=== PATIENT | male | born 1955 | race Caucasian/White ===

== ENCOUNTER 2024-10-01 16:00 | Emergency (ER) | payer MEDICARE, OTHER, SELFPAY ==
[2024-10-01 16:03] VITALS: BP 126/70
--- NOTE | 2024-10-01 17:34 | ED.GENMED ---
History of Present Illness
General
Chief Complaint: Skin Surface Trauma
Source: patient
Exam Limitations: none
Time Seen by Provider: 10/01/24 16:38
Nursing documentation reviewed up to this point in time: agreed with
History of Present Illness
History of Present Illness:
69 Y/O m
R hand dominant
accidentally cut L wrist with utility knife
unnkown tetanus
no active bleeding
normal ROM and snesation in his hand
Past History
Past History
ED Past Medical History: None
ED Past Surgical History: None
Phy Exam
Physical Exam
Physical Exam:
GENERAL: Alert , in no apparent distress, comfortable at rest
HEAD: NCAT
CV: 2+ radial and ulnar pulse
cap refill intact fingers L hand
NEUROLOGICAL: Alert and oriented, no focal neuro deficits, , 5/5 strength, sensation intact; pt has reported dminished sensation to fingertips of L hand but can feel my touch
SKIN: Warm and dry,
sightly irregular shaped laceration volar wrist center horizontally oriented 4 cm
no active bleeding
MUSCULOSKELETAL: wrist laceration L side
no obvious tendon/nerve or vascular injury
full hand and finger ROM
PSYCH: Normal and appropriate interaction.
Course
Orders/Labs/Results
Orders:
Orders
10/01/24 17:02
Tetanus/Diphth/Acelpertussis [Adacel] 0.5 ml IM .ONCE ONE
Vital Signs
Initial and Last Documented VS:
Initial Vital Signs
Temp Pulse Resp BP Pulse Ox
36.8 C 53 18 126/70 98
10/01/24 16:03 10/01/24 16:03 10/01/24 16:03 10/01/24 16:03 10/01/24 16:03
Last Documented Vital Signs
Temp Pulse Resp BP Pulse Ox
36.8 C 53 18 126/70 98
10/01/24 16:03 10/01/24 16:03 10/01/24 16:03 10/01/24 16:03 10/01/24 17:34
Procedures
Laceration Closure
Left Volar Wrist:
Status of Wound: clean
Size of Wound in cm: 4
Description of Wound Edges: sharp
Preparation: cleaned with saline
Anesthesia: 1% Lidocaine
Revision/Debridement: routine- no revision
Wound exploration: explored to base- no FB and no tendon involvement
Type of Closure: single layer closure
Skin Closure Material: 5-0 nylon
Number of sutures: 6
MDM/Problems Addressed
Differential Diagnosis Includes:
laceration
MDM/Problems Addressed:
69 y/o M
right hand dominant
accidental L wrist laceration
teanus updated here
no known n/v injury
full ROM
irrigated and closed, well approximated
hand surgery f/u as needed; has some subjective fingertip tinglin but no objective senssory dficits; no obvious median nerve injury
*Pulse Oximetry
SaO2: 98
Patient hypoxic: no (98)
*Critical Care Note
Total Time (30-74mins, 75-104mins- exclusive of procedures): Not Applicable
ED Attending Note
-
Portions of this chart may have been created with voice recognition software.� Occasional wrong word or��sound alike� substitutions may have occurred due to the inherent limitations of voice recognition software.
Discharge Plan
Departure
Patient Disposition: Home (Routine Discharge)
Date of Disposition: 10/01/24
Time of Disposition: 17:31
Patient with high blood pressure during this ER visit?: No
Condition: Fair
Covid-19: Not Applicable
Discharge Problem:
Laceration of wrist
Instructions: Laceration Repair With Stitches (DC)
Prescriptions:
No Action
omeprazole 40 MG capsule,delayed release(DR/EC)
40 mg PO DAILYPRN PRN (Reason: heartburn)
multivitamin with folic acid [Tab-A-Kervin] 1 TABLET tablet
1 tab PO DAILY
acetaminophen 325 MG tablet
650 mg PO Q4HPRN PRN (Reason: fever >/= 100.4F, [place],mild pain) 0RF
dexamethasone 4 MG tablet
6 mg PO DAILY Qty: 3 0RF
codeine-guaifenesin [Guaiatussin AC] 10 ML liquid
10 ml PO Q4HPRN PRN (Reason: cough) 0RF
Referrals:
NONE,* [Family Provider, Internal Medicine]
Jose Maria Garnica MD [Active, Orthopedics] - Follow up in 5-7 days
Activity Restrictions/Additional Instructions:
KEEP THE WOUND CLEAN AND DRY FOR 24 HOURS
AFTER THAT YOU CAN GET IT WET IN THE BATH/SHOWER ONCE A DAY AND MAKE SURE IT IS CLEAN AND THERE IS NO DRIED BLOOD ON THE STITCHES
APPLY NEOSPORIN AND A BANDAID
THE STITCHES NEED TO BE REMOVED IN ABOUT 7-10 DAYS, SEE YOUR DOCTOR FOR THIS.
THE LAST DAY BEFORE STITCHES OUT, NO OINTMENT, LEAVE OPEN TO AIR
WATCH FOR SIGNS OF INFECTION AND RETURN NEEDED FOR PAIN, SWELLING, REDNESS, DRAINAGE, BLEEDING.
MOTRIN NEEDED FOR PAIN.
Discharge Date and Time
Discharge Date/Time: 10/01/24 18:08
Print Language: OMANI
[2024-10-01] MEDS: ADACEL 0.5 ML IM (17:45)
== END 2024-10-01 18:08 | disposition home or self-care (01) ==
LOC: EMR 16:00
PROVIDERS: EMERGENCY PHYSICIAN Emergency Medicine
DX: S61.512A Laceration without foreign body of left wrist, initial encounter (principal); W26.0XXA Contact with knife, initial encounter; Z23 Encounter for immunization
CPT/HCPCS: 99282; 12002; 90471; 90715

== ENCOUNTER → 2025-01-31 10:00 | Outpatient (REF) | payer SELFPAY | LOC: HWRAD 10:00 | PROVIDERS: ATTENDING PHYSICIAN Hospitalist | DX: E78.5 Hyperlipidemia, unspecified (principal) | CPT/HCPCS: 75571 ==